=== PATIENT | male | born 1955 | race Caucasian/White ===

== ENCOUNTER 2018-03-30 11:50 | Day surgery (SDC) | payer MEDICARE, OTHER ==
[~2018-03-30] VITALS: Ht 177.8 cm; Wt 89.5 kg
[~2018-03-30 11:50] MED LIST: ASPI1CPM9 PO; ATOR40TA78 PO; HYDR12.53 PO; LOSA100T6 PO; METH750T87 PO; NABU750T PO; SIMV10TA3 PO
[2018-03-30 13:13] VITALS: BP 117/79
[2018-03-30] MEDS ORDERED: D5%-0.45% NACL 1,000 ML IV SCH ×2 (13:15→16:46)
[2018-03-30] MEDS ORDERED: VISIPAQUE 270 MG/ML, 50ML BOTTLE ONE (14:30)
[2018-03-30] MEDS ORDERED: LIDOCAINE-MPF 2%, 2ML ONE (14:35)
[2018-03-30] MEDS ORDERED: FENTANYL PF 100 MCG/2ML ONE (14:38)
[2018-03-30] MEDS ORDERED: MIDAZOLAM 1 MG/ML, 5ML ONE (14:39)
[2018-03-30] MEDS ORDERED: FLUMAZENIL 0.1 MG/1 ML, 5ML ONE (14:39)
[2018-03-30] MEDS ORDERED: NALOXONE 1 MG/ML, 2ML ONE (14:39)
[2018-03-30] MEDS ORDERED: HEPARIN 5,000 UNITS/ML, 1ML ONE (14:39)
[2018-03-30] MEDS ORDERED: PROTAMINE SULFATE 10 MG/ML, 25ML ONE (14:40)
[2018-03-30] MEDS ORDERED: HYDROcodone/APAP 5/325 TABLET PO PRN (17:00)
[2018-03-30 19:42] VITALS: BP 152/85
== END 2018-03-30 20:30 | disposition home or self-care (01) ==
LOC: SDC 11:50 → 4NOR 17:39 → OUT 20:30
PROVIDERS: ATTEND Surgery
DX: I70.212 Atherosclerosis of native arteries of extremities with intermittent claudication, left leg (principal); I10 Essential (primary) hypertension; F17.200 Nicotine dependence, unspecified, uncomplicated; F17.210 Nicotine dependence, cigarettes, uncomplicated; Z98.42 Cataract extraction status, left eye; Z86.73 Personal history of transient ischemic attack (TIA), and cerebral infarction without residual deficits; Z98.41 Cataract extraction status, right eye; Z98.890 Other specified postprocedural states; Z72.89 Other problems related to lifestyle; Z79.82 Long term (current) use of aspirin; Z79.899 Other long term (current) drug therapy
CPT/HCPCS: 37225; 75625; 75716; 99156; 99157; C1714; C1725; C1751; C1760; C1769; C1884; C1894; C2623; J1644; J2250; J2720; J3010; J3490; Q9966; J2310